=== PATIENT | male | born 1965 | race Caucasian/White ===

== ENCOUNTER 2020-02-07 18:42 | Emergency (ER) | payer OTHER, SELFPAY ==
--- NOTE | ~2020-02-07 | XR_ITS ---
EXAMINATION: XR hip LT 2V w AP pelvis EXAM DATE: 02/07/2020 19:58 INDICATION: Initial encounter following injury, with pain of the pelvis, left hip. TECHNIQUE: Left hip frontal, 'frog leg' projections for interpretation. Frontal projection pelvis. There is no prior study for comparison. FINDINGS: Smooth left hip femoral head contour, no radiographic evidence of avascular necrosis. Ther e are no acute fractures or dislocations identified. There is no subcutaneous gas. The soft tissue is unremarkable. There are no radiopaque foreign bodies. There is minimal symmetric bilateral hip primary osteoarthritis. IMPRESSION: 1. Left hip, pelvis exam without acute osseous findings. Reviewed, dictated and finalized at location A.
--- NOTE | ~2020-02-07 | XR_ITS ---
EXAMINATION: XR shoulder LT min 2V EXAM DATE: 02/07/2020 19:58 INDICATION: Initial encounter following injury, with pain of the left shoulder. TECHNIQUE: The following left shoulder projections obtained: frontal projection with internal rotatio n, frontal projection with external rotation, Grashey, and scapular Y view (4+ views). There is no p rior study for comparison. FINDINGS: There is mild left acromioclavicular primary osteoarthritis. There are no acute fractures or dislocations identified. There is no subcutaneous gas. The soft tissue is unremarkable. There are no radiopaque foreign bodies. IMPRESSION: 1. Left shoulder exam without acute osseous findings. Reviewed, dictated and finalized at location A.
--- NOTE | ~2020-02-07 | XR_ITS ---
EXAMINATION: XR hand RT min 3V EXAM DATE: 02/07/2020 19:58 INDICATION: Initial encounter following injury, with pain of the right hand. TECHNIQUE: Right hand frontal, lateral and oblique projections obtained and reviewed. There is no pr ior study for comparison. FINDINGS: Right metacarpal bones are unremarkable. There are no acute fractures or dislocations iden tified. There is no subcutaneous gas. The soft tissue is unremarkable. There are no radiopaque fo reign bodies. IMPRESSION: 1. Right hand exam without acute osseous findings. Reviewed, dictated and finalized at location A.
--- NOTE | ~2020-02-07 | XR_ITS ---
EXAMINATION: XR elbow LT min 3V EXAM DATE: 02/07/2020 19:57 INDICATION: Initial encounter following injury, with pain of the left elbow. TECHNIQUE: Left elbow frontal, lateral with flexion, and oblique projections obtained and reviewed. There is no prior study for comparison. FINDINGS: Left elbow anterior humeral line intact. There are no acute fractures or dislocations robbie ntified. There is no subcutaneous gas. The soft tissue is unremarkable. There are no radiopaque f oreign bodies. IMPRESSION: 1. Left elbow exam without acute osseous findings. Reviewed, dictated and finalized at location A.
[2020-02-07 18:46] VITALS: BP 122/85; PULSE 69; RESP 18; TEMP 37.2; O2SAT 100
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
[2020-02-07] MEDS: ONDANSETRON INJ 4 MG/2 ML VIAL IV PUSH (19:26)
[2020-02-07] MEDS: MORPHINE SULFATE 4 MG/ML INJ IV PUSH (19:27)
[2020-02-07] MEDS: TETANUS,DIPHTHERIA,AC PERTUSSIS ADULT (0.5 ML) BOOSTRIX IM (19:30)
[2020-02-07 22:20] VITALS: PULSE 68; RESP 21; O2SAT 99
== END 2020-02-07 22:20 | disposition home or self-care (01) ==
PROVIDERS: Emergency Provider General Practice
DX: S61.101A Unspecified open wound of right thumb with damage to nail, initial encounter (principal); S40.212A Abrasion of left shoulder, initial encounter; S70.212A Abrasion, left hip, initial encounter; Z23 Encounter for immunization; V11.0XXA Pedal cycle driver injured in collision with other pedal cycle in nontraffic accident, initial encounter; Y93.55 Activity, bike riding
CPT/HCPCS: 12001; 73030; 73080; 73130; 73502; 90471; 90715; 96374; 96375; 99284; J2270; J2405